=== PATIENT | female | born 1950 | race Caucasian/White ===

== ENCOUNTER 2016-09-11 11:34 | Emergency (ER) | payer OTHER ==
[~2016-09-11 11:34] MED LIST: AMOXICILLIN875 M1 PO; ARTHRITIS MED; CITALOPRAM HBR10 M1 PO; HUMIRA; MACRODANTIN50 M2 PO; PREMARIN0.625 MG/T PO; PYRIDIUM200 M2 PO
[2016-09-11] MEDS ORDERED: VITAMIN B122500 MCG PO (11:57)
[2016-09-11] MEDS ORDERED: OS-CAL 500+D31 EAC1 PO (11:58)
[2016-09-11] MEDS ORDERED: VITAMIN B6 PO (11:58)
[2016-09-11] MEDS ORDERED: MOBIC7.5 M2 PO (12:49)
== END 2016-09-11 13:19 ==
LOC: EDMED 11:34
DX: S09.90XA Unspecified injury of head, initial encounter (principal); M06.9 Rheumatoid arthritis, unspecified; W19.XXXA Unspecified fall, initial encounter; Y92.69 Other specified industrial and construction area as the place of occurrence of the external cause; Y99.0 Civilian activity done for income or pay
CPT/HCPCS: J1885